=== PATIENT | male | born 1960 | race Caucasian/White ===

== ENCOUNTER 2019-12-04 12:46 | Day surgery (SDC) | payer BC ==
[2019-12-04] MEDS ORDERED: PROPOFOL 10 MG/ML VIAL IV ONE (12:47)
[2019-12-04] MEDS ORDERED: LIDOCAINE 2% MDV (20MG/ML) 20ML VIAL IV ONE (12:47)
--- NOTE | 2019-12-05 06:50 | Operative Note ---
OPERATION: COLONOSCOPY with cold forceps and cold snare polypectomies. PREOPERATIVE DIAGNOSIS: Colon cancer screening, initial exam. POSTOPERATIVE DIAGNOSIS: Colon polyps. PREPARATION QUALITY: Good. ESTIMATED BLOOD LOSS: Minimum. SPECIMENS: Descending colon, sigmoid colon, and rectosigmoid. COMPLICATIONS: None apparent. PROCEDURE: After informed consent was obtained from the patient, he was placed in the left lateral decubitus position in the endoscopy suite, sedated and monitored by the department of anesthesia. Digital rectal exam was unremarkable. A well-lubricated [id number] colonoscope was inserted into the rectum and advanced to the cecum. Preparation quality was good to excellent. The cecum, cecal bulb, ileocecal valve, appendiceal orifice, ascending colon, and transverse colon were free of inflammatory changes, mass lesions, or polyps. There was a diminutive descending colon polyp identified, removed with a cold forceps. There was a 5 mm sessile polyp in the sigmoid colon removed with a cold snare and retrieved, 2 diminutive rectosigmoid colon polyps identified each removed with a cold forceps. The rectum was unremarkable in forward and J-turn views. The endoscope was straightened, the rectal ampulla deflated, and the endoscope was removed. RECOMMENDATIONS: The patient should undergo repeat exam in 3-5 years pending tissue histology. As always, thank you for allowing me to participate in the healthcare of your patients. FABY
== END 2019-12-04 14:45 | disposition home or self-care (01) ==
LOC: HOP 12:46
PROVIDERS: ATTEND Internal Medicine Gastroenterology
DX: Z12.11 Encounter for screening for malignant neoplasm of colon (principal); D12.4 Benign neoplasm of descending colon; K63.5 Polyp of colon; I10 Essential (primary) hypertension; I50.9 Heart failure, unspecified; E78.00 Pure hypercholesterolemia, unspecified

== ENCOUNTER 2019-12-19 07:39 | Day surgery (SDC) | payer BC ==
[~2019-12-19 07:39] MED LIST: ACETAMINOPHEN 1,000 MG/100 ML BTL IVPB ONE
[2019-12-19] MEDS ORDERED: DESFLURANE 240 ML BTL INH ONE (07:40)
[2019-12-19] MEDS ORDERED: DEXAMETHASONE 4 MG/ML 1ML VIAL IVP ONE (07:40)
[2019-12-19] MEDS ORDERED: FENTANYL PF 100MCG/2ML VIAL IV ONE (07:40)
[2019-12-19] MEDS ORDERED: ONDANSETRON HCL IV 4 MG/2 ML VIAL IVP ONE (07:40)
[2019-12-19] MEDS ORDERED: MIDAZOLAM HCL 2MG/2ML VIAL IV ONE (07:40)
[2019-12-19] MEDS ORDERED: LIDOCAINE 2% MDV (20MG/ML) 20ML VIAL IV ONE (07:40)
[2019-12-19] MEDS ORDERED: PROPOFOL 10 MG/ML VIAL IV ONE (07:40)
[2019-12-19] MEDS ORDERED: RINGERS SOLUTION,LACTATED 1,000 ML IV ONE (08:15)
[2019-12-19] MEDS ORDERED: BUPIVACAINE 0.25% W/EPI MPF 30ML VIAL SQ ONE (09:48)
--- NOTE | 2019-12-19 12:26 | Operative Note ---
DATE OF SURGERY: 12/19/2019 SURGEON: Mario Merrill D.O. REFERRING PHYSICIAN: Panchito Bowden D.O. PREOPERATIVE DIAGNOSIS: 1. TORN MEDIAL MENISCUS RIGHT KNEE. 2. CHONDROMALACIA OF THE RIGHT KNEE. POSTOPERATIVE DIAGNOSIS: 1. TORN MEDIAL MENISCUS RIGHT KNEE. 2. 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 3. CHONDROCALCINOSIS OF THE RIGHT KNEE. OPERATION: 1. ARTHROSCOPIC PARTIAL MEDIAL MENISCECTOMY RIGHT KNEE. 2. ARTHROSCOPIC CHONDROPLASTY OF THE TROCHLEA AND MEDIAL FEMORAL CONDYLE RIGHT KNEE. 3. ARTHROSCOPIC PARTIAL SYNOVECTOMY RIGHT KNEE. DESCRIPTION: This 59-year-old male was taken to the Operating Room and placed in the supine position on the operating room table. General anesthesia was induced. The right lower extremity was elevated, it was exsanguinated and the tourniquet was inflated to 250 mmHg. Arthroscopic knee lynn applied. The right knee was prepped with Hibiclens and draped in the usual sterile fashion. An inferolateral portal was established for the 4 mm arthroscope and initial evaluation of the joint demonstrated normal appearance of the the suprapatellar pouch, but advanced degenerative disease of the trochlea with very severe Grade 3 changes noted throughout so essentially no normal articular cartilage present, only a little at the periphery of both the medial and lateral femoral condyles. The articular cartilage of the patella demonstrated Grade 2 change and was not further disturbed. Chondroplasty of the trochlea was performed to stabilize the articular cartilage there. A significant amount of chondrocalcinosis is also identified. This was deposited on not only the articular cartilage, but the synovium in all three compartments. Synovitis was present mostly in the medial compartment and partial synovectomy was performed. A complex tear of the medial meniscus was present with both horizontal cleavage and vertical components being identified. The tear extended from the posterior attachment all the way around to approximately the 4:00 o'clock position and utilizing the basket forceps and rotating shaver we resected unstable fragments of the meniscus and then reprobed and conformed stability. There was Grade 2-3 changes noted in the medial femoral condyle which were smoothed with the rotating shaver. The intercondylar notch was examined and found to be normal. The lateral compartment was entered and there was chondrocalcinosis in the lateral compartment, but no evidence of tear of the lateral meniscus nor was there any defects of the articular cartilage of the lateral femoral condyle. The joint was then copiously irrigated and suctioned. All instruments were removed. The portal was infiltrated with 0.25% Marcaine with Epinephrine, sterile dressings applied, tourniquet and knee lynn released and the patient was taken to the Recovery Room in satisfactory condition. GROSS PATHOLOGY: There was chondrocalcinosis throughout the knee with a complex tear of the posterior horn of the medial meniscus as described above and significant degenerative change at the patellofemoral joint with severe Grade 3 changes noted in the trochlea, Grade 2 of the patella and mostly Grade 2 changes noted on the medial femoral condyle. JOB NUMBER: [id number] MTDD
== END 2019-12-19 10:50 | disposition home or self-care (01) ==
LOC: SUR 07:39
PROVIDERS: ATTEND Orthopaedic Surgery
DX: S83.231A Complex tear of medial meniscus, current injury, right knee, initial encounter (principal); I10 Essential (primary) hypertension; E78.00 Pure hypercholesterolemia, unspecified; I50.9 Heart failure, unspecified; I51.7 Cardiomegaly; I25.10 Atherosclerotic heart disease of native coronary artery without angina pectoris
CPT/HCPCS: J2405; J7120